=== PATIENT | female | born 1950 | race Caucasian/White ===

== ENCOUNTER → 2017-04-27 | Outpatient (CLI) | payer MEDICARE, OTHER ==
[~2017-04-27] MED LIST: ASPI-1441 PO; CARV12.577 PO; CEP500 PO; LISI-346 PO; METXL50 PO; OMEP-218 PO; ZOLP-350 PO; [UNRECOGNIZED DRUG - CODE] PO; [UNRECOGNIZED DRUG - CODE] PO
--- NOTE | 2017-04-28 08:24 | RADIOLOGY IMAGING REPORT ---
FACILITY: [facility] - [place] PATIENT NAME: KATARINA LENNON : [id number] MR: [id number] V: [id number] EXAM DATE: [id number] ORDERING PHYSICIAN: COOPER SALGUERO TECHNOLOGIST: Katharina Ayala PROCEDURE:BILATERAL DIGITAL SCREENING MAMMOGRAM WITH CAD ASSISTED INTERPRETATION AND 3D BREAST TOMOSYNTHESIS. COMPARISON:Prior mammograms dated 05/04/16, , 04/13/16, 03/03/15 and 03/01/14. INDICATIONS:SCREENING FINDINGS: A small to moderate amount of fibroglandular tissue is seen throughout the breasts. The grouping of round calcifications in the upper outer quadrant of the right breast are no longer seen. There is now a stereotactic biopsy clip in their place. In the upper portion of the left breast on the left MLO view is a focal area of increased density that appears slightly more prominent when compared to the prior studies. Spot compression view is recommended for further evaluation. DIAGNOSTIC CATEGORY 0--INCOMPLETE: NEED ADDITIONAL IMAGING EVALUATION. RECOMMENDATIONS: ADDITIONAL MAMMOGRAPHIC VIEWS REQUIRED: LEFT BREAST. IMPRESSION: BI-RADS 0: Additional views of the left breast recommended as described. Images were reviewed with R2CAD and 3D breast tomosynthesis. Dictated by: Vickie Lugo M.D. on 04/27/2017 at 15:42 Transcribed by: SAVANA on 04/27/2017 at 19:04 Approved by: Vickie Lugo M.D. on 04/28/2017 at 8:23 [facility]
== END ==
LOC: MAMO 04-14 01:10
PROVIDERS: ATTEND Obstetrics & Gynecology
DX: Z12.31 Encounter for screening mammogram for malignant neoplasm of breast (principal); R92.8 Other abnormal and inconclusive findings on diagnostic imaging of breast
CPT/HCPCS: 77063; 77067

== ENCOUNTER → 2017-05-04 | Outpatient (CLI) | payer MEDICARE, OTHER ==
--- NOTE | 2017-05-06 11:40 | RADIOLOGY IMAGING REPORT ---
FACILITY: [facility] PATIENT NAME: KATARINA LENNON : [id number] MR: [id number] V: [id number] EXAM DATE: ORDERING PHYSICIAN: COOPER SALGUERO TECHNOLOGIST: Vanessa Nichols PROCEDURE:LEFT DIGITAL DIAGNOSTIC MAMMOGRAM WITH CAD ASSISTED INTERPRETATION COMPARISON:Prior mammograms 04/27/17, 04/13/16, 03/03/15, 03/01/14 INDICATIONS:FURTHER EVAL FINDINGS: Patient returns for a mediolateral view of the left breast & a spot compression view in the left MLO projection. A small focal area of increased density in the upper portion left breast on the recent MLO view appeared compressible & apparently represented a summation shadow. There is no demonstration of malignant appearing mass or calcification in the left breast. DIAGNOSTIC CATEGORY 2--BENIGN FINDING. RECOMMENDATIONS: ROUTINE MAMMOGRAM AND CLINICAL EVALUATION. IMPRESSION: BIRADS 2: Benign finding 1. No significant abnormality is seen Dictated by: Vickie Lugo M.D. on 05/04/2017 at 16:12 Transcribed by: NELLY on 05/05/2017 at 14:52 Approved by: Vickie Lugo M.D. on 05/06/2017 at 11:39 [facility]
== END ==
LOC: MAMO 00:45
PROVIDERS: ATTEND Obstetrics & Gynecology
DX: R92.2 Inconclusive mammogram (principal)
CPT/HCPCS: 77065

== ENCOUNTER → 2018-05-08 | Outpatient (CLI) | payer MEDICARE, OTHER ==
--- NOTE | 2018-05-08 15:23 | RADIOLOGY IMAGING REPORT ---
FACILITY: [facility] PATIENT NAME: Lori Drake : 1950 MR: [id number] V: [id number] EXAM DATE: ORDERING PHYSICIAN: COOPER SALGUERO TECHNOLOGIST: Location: [facility] - [place] Patient: Lori Drake : 1950 Visit/Account:[id number] Date of Sevice: 05/08/2018 DEXA Scan Clinical history: Wellness exam. Comparison: DEXA scan from 08/28/2013. LUMBAR SPINE: The bone mineral density (BMD) measured from L1-L4 correlates with a Z-score of 4.2 and a T-score of 2.7 which is Normal as defined by the World Health Organization. The corresponding risk of fracture in the lumbar spine is Not increased compared with a young adult reference population. This value escobar s increase by 5.8 % since the prior study. More than 5% change is considered significant. HIP: Bone mineral density (BMD) measured in the LEFT total hip region correlates with a Z-score 1.8 and a T-score of 0.7 which is normal as defined by the World Health Organization. The corresponding risk of fracture in the hip is Not i ncreased compared to a young adult reference population. This value has decrease by 6.1 % since the p rior study. More than 5% change is considered significant. T score left femoral neck 0.0 Bone mineral density (BMD) measured in the Femoral Neck region measures 1.041 g/cm?. IMPRESSION: 1. Lumbar spine: Normal. There has been 5.8% increase in the bone mineral density since the previou s exam. 2. Left Total Hip: Normal. There has been 6.1% decrease in the bone mineral density since the previ ous exam. 3. Femoral Neck: Bone Mineral Density is 1.041 g/cm? The next DEXA scan of this patient should include the following sites: L1-L4 and the left hip. FRAX? WHO Fracture Risk Assessment Tool link: <http://www.shef.ac.uk/FRAX/tool.jsp?locationValue=9> PLEASE NOTE: 1) The World Health Organization defines low BMD as follows: T-score Normal > -1 Osteopenia < -1 and > -2.5 Osteoporosis < -2.5 without fractures Established osteoporosis < -2.5 with fractures 2) In general, you may wish to consider: Diagnosis Treatment Follow-up DEXA Normal BMD Prevention 2-3 years Osteopenia Prevention/therapy 1-2 years Osteoporosis Therapy Yearly 3) Fracture risk estimated from the T-score is more accurate for vertebral fractures (often spontane ous) than for hip fractures. Report Dictated By: Vickie Lugo MD at 05/08/2018 3:16 PM Report E-Signed By: Vickie Lugo MD at 05/08/2018 3:18 PM WSN:[email or web address]
--- NOTE | 2018-05-09 11:16 | RADIOLOGY IMAGING REPORT ---
FACILITY: [facility] - [place] PATIENT NAME: KATARINA LENNON : [id number] MR: [id number] V: [id number] EXAM DATE: [id number] ORDERING PHYSICIAN: COOPER SALGUERO TECHNOLOGIST: Katharina Ayala PROCEDURE:BILATERAL DIGITAL SCREENING MAMMOGRAM WITH CAD ASSISTED INTERPRETATION & 3D TOMOSYNTHESIS COMPARISON:Prior mammograms 05/04/17, 04/27/17, 04/29/16, 04/13/16. INDICATIONS:SCREENING FINDINGS: Scattered fibroglandular densities are seen throughout the breasts. The parenchymal pattern has remained stable allowing for difference in mammographic technique & patient positioning. There is a biopsy clip in the upper outer quadrant of the Right breast. DIAGNOSTIC CATEGORY 2--BENIGN FINDING. RECOMMENDATIONS: ROUTINE MAMMOGRAM AND CLINICAL EVALUATION. IMPRESSION: BIRADS 2: Benign finding. No significant abnormality is seen. Dictated by: Vickie Lugo M.D. on 05/08/2018 at 15:08 Transcribed by: DARIEL on 05/08/2018 at 15:22 Approved by: Vickie Lugo M.D. on 05/09/2018 at 11:15 [facility]
== END ==
LOC: MAMO 00:37
PROVIDERS: ATTEND Obstetrics & Gynecology
DX: Z13.820 Encounter for screening for osteoporosis (principal); Z12.31 Encounter for screening mammogram for malignant neoplasm of breast
CPT/HCPCS: 77063; 77067; 77080